=== PATIENT | male | born 1955 | race American Indian/Alaskan Native ===

== ENCOUNTER 2018-01-31 12:40 | Emergency (ER) | payer SELFPAY ==
[2018-01-31 13:37] LABS: Basophils # (Auto) 0.1 K/mm3 (0.0-0.1); Basophils % (Auto) 1.3 % (0.0-1.8); Eosinophils # (Auto) 0.1 K/mm3 (0.0-0.4); Eosinophils % (Auto) 1.9 % (0.0-4.3); Hematocrit 42.6 % (35.5-45.6); Hemoglobin 14.8 gm/dl (11.8-15.2); Lymphocytes # (Auto) 2.7 K/mm3 (1.2-5.4); Lymphocytes % (Auto) 54.4 % (13.4-35.0); Mean Corpuscular HGB Conc 35 % (32-34); Mean Corpuscular Hemoglobin 32 pg (28-32); Mean Corpuscular Volume 91 fl (84-94); Monocytes # (Auto) 0.3 K/mm3 (0.0-0.8); Monocytes % (Auto) 6.7 % (0.0-7.3); Platelet Count 227 K/mm3 (140-440); Red Blood Count 4.67 M/mm3 (3.65-5.03); Red Cell Distribution Width 15.2 % (13.2-15.2)
[2018-01-31 13:51] LABS: BUN/Creatinine Ratio 8; Blood Urea Nitrogen 8 mg/dL (9-20); Calcium 9.7 mg/dL (8.4-10.2); Hemolysis Index 2
[2018-01-31 13:56] LABS: Bilirubin,Urine NEG (Negative); Blood,Urine SM (Negative); Color,Urine Yellow (Yellow); Mucus,Urine FEW /HPF; Urobilinogen,Urine < 2.0 mg/dL (<2.0); WBC,Urine < 1.0 /HPF (0.0-6.0)
[2018-01-31 14:03] LABS: Amphetamine Screen,Urine PRESUMPTIVE NEGATIVE; Benzodiazepines Screen,Urine PRESUMPTIVE NEGATIVE; Cannabinoid Screen,Urine PRESUMPTIVE NEGATIVE; Methadone Screen,Urine PRESUMPTIVE NEGATIVE; Opiate Screen,Urine PRESUMPTIVE NEGATIVE
[2018-01-31 14:15] LABS: Cocaine Screen,Urine PRESUMPTIVE POSITIVE
[2018-01-31] MEDS ORDERED: ATIVAN PO PRN (15:31)
--- NOTE | 2018-01-31 15:33 | Emergency Department Report ---
<JENNY DYE - Last Filed: 01/31/18 15:31> ED General Adult HPI - General Chief complaint: Alcohol Stated complaint: INTOXICATED Time Seen by Provider: 01/31/18 13:05 Source: patient, EMS Mode of arrival: Wheelchair Limitations: No Limitations - History of Present Illness Initial comments: Patient presents to the emergency department via local PD for public intoxication. Patient states he is a heavy drinker and wants to stop. Patient endorses to drinking half a gallon of whiskey daily. Patient states that he wants to stop drinking because it is destroying his life. Patient denies any homicidal or suicidal ideation and also denies any auditory or visual hallucinations. Patient denies history of delirium tremens - Related Data Allergies Allergy/AdvReac Type Severity Reaction Status Date / Time No Known Allergies Allergy Unverified 01/31/18 12:45 ED Review of Systems ROS: Stated complaint: INTOXICATED Other details as noted in HPI Comment: All other systems reviewed and negative Constitutional: denies: chills, fever Eyes: denies: eye pain, eye discharge, vision change ENT: denies: ear pain, throat pain Respiratory: denies: cough, shortness of breath, wheezing Cardiovascular: denies: chest pain, palpitations Endocrine: no symptoms reported Gastrointestinal: denies: abdominal pain, nausea, diarrhea Genitourinary: denies: urgency, dysuria Musculoskeletal: denies: back pain, joint swelling, arthralgia Skin: denies: rash, lesions Neurological: denies: headache, weakness, paresthesias Psychiatric: denies: anxiety, depression Hematological/Lymphatic: denies: easy bleeding, easy bruising ED Past Medical Hx - Past Medical History Previous Medical History?: Yes Hx Liver Disease: Yes (Hepatitis C) Additional medical history: ETOH abuse - Surgical History Past Surgical History?: Yes Additional Surgical History: Left collar bone surgery, Left elbow - Social History Smoking Status: Current Every Day Smoker Substance Use Type: Alcohol ED Physical Exam - General Limitations: No Limitations General appearance: alert, in no apparent distress, appears intoxicated - Head Head exam: Present: atraumatic, normocephalic - Eye Eye exam: Present: normal appearance, conjunctival injection - ENT ENT exam: Present: mucous membranes moist - Neck Neck exam: Present: normal inspection - Respiratory Respiratory exam: Present: normal lung sounds bilaterally. Absent: respiratory distress, wheezes, rales, rhonchi - Cardiovascular Cardiovascular Exam: Present: regular rate, normal rhythm. Absent: systolic murmur, diastolic murmur, rubs, gallop - GI/Abdominal GI/Abdominal exam: Present: soft, normal bowel sounds. Absent: distended, tenderness - Rectal Rectal exam: Present: deferred - Extremities Exam Extremities exam: Present: normal inspection - Back Exam Back exam: Present: normal inspection - Neurological Exam Neurological exam: Present: alert, oriented X3, CN II-XII intact. Absent: motor sensory deficit - Psychiatric Psychiatric exam: Present: normal affect, normal mood - Skin Skin exam: Present: warm, dry, intact, normal color. Absent: rash ED Course Vital Signs 01/31/18 01/31/18 01/31/18 12:45 16:50 23:25 Temperature 37.0 C 37.1 C Pulse Rate 66 79 Respiratory 18 18 17 Rate Blood Pressure 96/74 Blood Pressure 119/82 [Left] O2 Sat by Pulse 99 96 99 Oximetry 02/01/18 02/01/18 09:00 21:00 Temperature 36.6 C 36.8 C Pulse Rate 70 72 Respiratory 18 18 Rate Blood Pressure Blood Pressure 131/99 144/96 [Left] O2 Sat by Pulse 100 99 Oximetry ED Medical Decision Making - Lab Data Result diagrams: 01/31/18 13:15 01/31/18 13:15 Critical care attestation.: If time is entered above; I have spent that time in minutes in the direct care of this critically ill patient, excluding procedure time. ED Disposition Clinical Impression: Alcohol abuse Disposition: DC-01 TO HOME OR SELFCARE Condition: Stable Instructions: Abuse of Alcohol (ED) Additional Instructions: We have recommended that you seek continued treatment for detoxification from alcohol, but you have declined to wait for a bed placement. You're physically stable, blood pressure and pulse are stable, he had no fever, No signs of tremor or confusion, and are stable for discharge, although we recommend that he remain for appropriate placement. In any case, it is your decision to leave, and you have the right to do so. We recommend that you seek counseling, 4 continued detoxification, and alcohol withdrawal treatment. Return anytime if he have any recurrence of symptoms, or if he starts drinking again, and decided that you wished to stop. Referrals: PRIMARY CARE, [Primary Care Provider] - 3-5 Days <NICO REID - Last Filed: 02/02/18 10:08> ED Medical Decision Making - Lab Data Result diagrams: 01/31/18 13:15 01/31/18 13:15 ED Disposition Is pt being admited?: No Does the pt Need Aspirin: No Time of Disposition: 10:08
--- NOTE | 2018-02-02 10:05 | Emergency Department Report ---
Blank Doc - Documentation Documentation: Interval discharge note, 0955 hrs. Patient here for detox, with significant history of alcoholism, reportedly drinking upwards of one half gallon of whiskey daily, and was here for placement for detox, and has been stable with no symptoms, and now wishes to leave, to make his own arrangements, reporting that he will try to seek further care at [facility]. Patient denies any acute symptoms, does not feel unsteady, does not feel restless or agitated. He denies any history of prior DVTs or withdrawal symptoms, has never had a seizure episode as result of his alcohol use or withdrawal, and has not shown any signs of confusion, but does not wish to wait any further for additional treatment, we will make care arrangements on his own. On my examination, patient is stable, being alert and oriented, calm, neurologically stable with no acute weakness, no focal symptoms, no tremor, and vital signs are stable. He's only had one dose of lorazepam, which she reports made him sleep the entire time he was here, does not want any medication on discharge. Although patient may be at some risk for later withdrawal symptoms, he shows no signs during his visit, or during my examination of the vasomotor instability, or signs of acute withdrawal. He is currently afebrile, pulse is regular at 60 , vital signs show blood pressure at 124/69. Oxygen saturation is 100%. He is alert and oriented, clearly has capacity to make his own decisions, showed no signs of acute withdrawal, and I believe he is stable for discharge on his own recognizance. No medications will be provided, the patient will seek further care on his own.
[2018-02-02 10:22] VITALS: BP 124/90
== END 2018-02-02 10:23 | disposition home or self-care (01) ==
LOC: ED 12:40 → EEVIPCON 12:40 → ED 02-02 10:23
DX: F10.129 Alcohol abuse with intoxication, unspecified (principal); F17.200 Nicotine dependence, unspecified, uncomplicated
CPT/HCPCS: 36415; 80048; 80307; 81001; 85025; 99284; G0480; 80320